=== PATIENT | male | born 1985 | race Two or more races ===

== ENCOUNTER 2022-04-10 19:04 | Inpatient (IN) | payer OTHER ==
[~2022-04-10] VITALS: Ht 172.7 cm; Wt 81.0 kg
[2022-04-10 19:39] LABS: Eosinophils # (auto) 0 10 ^3/uL (0-0.8); Eosinophils % (auto) 0.1 % (0.0-7.0); Hematocrit 35.6 % (41.0-53.0); Mean Corpuscular Volume 81.6 fL (80.0-100.0); Neutrophils % (auto) 85.3 % (37.0-80.0); Red Blood Cells 4.36 10^6/uL (4.5-5.90)
[2022-04-10 19:41] LABS: Basophils # (auto) 0 10 ^3/uL (0-0.2); Basophils % (auto) 0.2 % (0.0-2.0); Hemoglobin 11.5 g/dL (13.5-17.5); Lymphocytes # (auto) 1.5 10 ^3/uL (0.4-5.4); Lymphocytes % (auto) 10.7 % (10.0-50.0); Mean Corpuscular Hemoglobin 26.3 pg (28.0-32.0); Mean Corpuscular Hgb Conc. 32.3 g/dL (32.0-36.0); Monocytes # (auto) 0.5 10 ^3/uL (0-1.3); Monocytes % (auto) 3.7 % (0.0-12.0); Neutrophils # (auto) 11.6 10 ^3/uL (1.6-8.6); Nucleated Red Blood Cells % 0.1 %; Red Cell Distribution Width 19.2 % (11.8-14.3); White Blood Cell 13.6 10^3/uL (4.4-10.8)
[2022-04-10 19:56] LABS: INR 1.05 (0.9-1.15); Partial Thromboplastin Time 25.1 sec (23.6-33.0)
[2022-04-10 19:58] LABS: BUN/Creatinine Ratio 11.7; Calcium 8.7 mg/dL (8.5-10.1); Magnesium 2.1 mg/dL (1.6-2.6); Potassium 3.2 mmol/L (3.5-5.1)
[2022-04-10 20:01] LABS: Bilirubin, Total 0.5 mg/dL (0.2-1.0); Lactic Acid w/Reflex 2.2 mmol/L (0.4-2.0); Total Protein 7.3 g/dL (6.4-8.2)
[2022-04-10] MEDS ORDERED: LABETALOL HCL 5 MG/ML 4ML SYRINGE IV ONE (20:15)
[2022-04-10] MEDS ORDERED: cefTRIAXone 1GM/50ML D5W 50 ML IV ONE (20:15)
[2022-04-10] MEDS ORDERED: AZITHROMYCIN 500MG/ 250ML 250 ML IV ONE (20:15)
[2022-04-10] MEDS ORDERED: methylPREDNISolone SOD SUCC 125 MG/2 ML VL IV ONE (20:15)
[2022-04-10] MEDS ORDERED: ENOXAPARIN SOD 80 MG/0.8ML SYRINGE SC ONE (20:30)
[2022-04-10] MEDS ORDERED: LABETALOL INJECTION 250 MG in SODIUM CHL 0.9% 200 ML IV ONE (21:30)
[2022-04-10] MEDS ORDERED: LABETALOL HCL 5 MG/ML ML 20ML VIAL IV ONE (21:33)
[2022-04-10] MEDS ORDERED: ACETAMINOPHEN 325 MG TAB PO PRN (23:00)
[2022-04-10] MEDS ORDERED: LORazepam 0.5 MG TAB PO PRN (23:00)
[2022-04-10] MEDS ORDERED: ZOLPIDEM TARTRATE 5 MG TAB PO PRN (23:00)
[2022-04-10] MEDS ORDERED: LABETALOL HCL 5 MG/ML 4ML SYRINGE IV PRN (23:00)
[2022-04-10] MEDS ORDERED: MORPHINE SULFATE INJ 2 MG/ml SYRG IV PRN (23:00)
[2022-04-10] MEDS ORDERED: NITROGLYCERIN 0.4 MG SL TAB SL PRN (23:00)
[2022-04-10] MEDS ORDERED: ONDANSETRON HCL 4 MG/2 ML VIAL IV PRN (23:00)
[2022-04-10] MEDS ORDERED: hydrALAZINE HCL 20 MG/ML VL IV PRN (23:00)
[2022-04-10] MEDS ORDERED: ALBUTEROL SULF 2.5 MG/0.5ML(0.5%) NEB SOLN NEB PRN (23:15)
[2022-04-10 23:18] VITALS: BP 194/143
[2022-04-11 02:05] LABS: Urine Bacteria NONE SEEN /hpf (None Seen); Urine Blood Negative /uL (Negative); Urine WBC 2 /hpf (0 - 3)
[2022-04-11 04:27] LABS: Basophils # (auto) 0 10 ^3/uL (0-0.2); Eosinophils # (auto) 0 10 ^3/uL (0-0.8); Monocytes # (auto) 0.2 10 ^3/uL (0-1.3); White Blood Cell 9.8 10^3/uL (4.4-10.8)
[2022-04-11 04:30] LABS: Basophils % (auto) 0.1 % (0.0-2.0); Hemoglobin 9.9 g/dL (13.5-17.5); Lymphocytes # (auto) 0.7 10 ^3/uL (0.4-5.4); Lymphocytes % (auto) 6.7 % (10.0-50.0); Mean Corpuscular Hemoglobin 27.1 pg (28.0-32.0); Monocytes % (auto) 1.7 % (0.0-12.0); Neutrophils % (auto) 91.5 % (37.0-80.0); Red Blood Cells 3.67 10^6/uL (4.5-5.90); Red Cell Distribution Width 19.1 % (11.8-14.3)
[2022-04-11 04:51] LABS: BUN/Creatinine Ratio 13.5; Calcium 8.3 mg/dL (8.5-10.1); Magnesium 2.1 mg/dL (1.6-2.6); Potassium 3.5 mmol/L (3.5-5.1)
[2022-04-11] MEDS: DOCUSATE SOD 100 MG CAP PO SCH (10:47)
[2022-04-11] MEDS: ASPirin 81 mg TAB PO SCH (10:47)
[2022-04-11] MEDS: CLOPIDOGREL BISULFATE 75 MG TAB PO SCH (10:48)
[2022-04-11] MEDS: METOPROLOL TARTRATE 50 MG TAB PO SCH ×2 (10:48→22:05)
[2022-04-11] MEDS: LISINOPRIL 20 MG TAB PO SCH (10:49)
[2022-04-11] MEDS: ENOXAPARIN SOD 80 MG/0.8ML SYRINGE SC SCH ×2 (10:49→22:05)
[2022-04-11] MEDS: cefTRIAXone 1GM/50ML D5W 50 ML IV SCH (11:02)
[2022-04-11] MEDS: AZITHROMYCIN 500MG/ 250ML 250 ML IV SCH (12:21)
[2022-04-11 17:00] VITALS: BP 125/88
[2022-04-11 22:00] VITALS: BP 133/96
[2022-04-11] MEDS: ATORVASTATIN 20 MG TAB PO SCH (22:04)
[2022-04-12 05:00] VITALS: BP 147/103
[2022-04-12 08:00] VITALS: BP 146/112
[2022-04-12 08:16] VITALS: BP 146/112
[2022-04-12] MEDS: AZITHROMYCIN 500MG/ 250ML 250 ML IV SCH (10:25)
[2022-04-12] MEDS: METOPROLOL TARTRATE 50 MG TAB PO SCH ×2 (10:31→22:11)
[2022-04-12] MEDS: ASPirin 81 mg TAB PO SCH (10:32)
[2022-04-12] MEDS: LISINOPRIL 20 MG TAB PO SCH (10:32)
[2022-04-12] MEDS: CLOPIDOGREL BISULFATE 75 MG TAB PO SCH (10:32)
[2022-04-12] MEDS: DOCUSATE SOD 100 MG CAP PO SCH (10:33)
[2022-04-12] MEDS: ENOXAPARIN SOD 80 MG/0.8ML SYRINGE SC SCH (10:34)
[2022-04-12 11:48] LABS: Basophils # (auto) 0 10 ^3/uL (0-0.2); Basophils % (auto) 0.2 % (0.0-2.0); Eosinophils # (auto) 0 10 ^3/uL (0-0.8); Eosinophils % (auto) 0.4 % (0.0-7.0); Hematocrit 31.6 % (41.0-53.0); Hemoglobin 10.1 g/dL (13.5-17.5); Lymphocytes # (auto) 2.7 10 ^3/uL (0.4-5.4); Lymphocytes % (auto) 25.3 % (10.0-50.0); Mean Corpuscular Hemoglobin 26.4 pg (28.0-32.0); Mean Corpuscular Volume 82.6 fL (80.0-100.0); Monocytes # (auto) 0.7 10 ^3/uL (0-1.3); Monocytes % (auto) 6.5 % (0.0-12.0); Neutrophils # (auto) 7.2 10 ^3/uL (1.6-8.6); Neutrophils % (auto) 67.6 % (37.0-80.0); Red Blood Cells 3.82 10^6/uL (4.5-5.90); Red Cell Distribution Width 19.6 % (11.8-14.3); White Blood Cell 10.7 10^3/uL (4.4-10.8)
[2022-04-12 12:39] LABS: Albumin 2.5 g/dL (3.4-5.0); Calcium 8.5 mg/dL (8.5-10.1); Magnesium 2.5 mg/dL (1.6-2.6); Potassium 3.3 mmol/L (3.5-5.1)
[2022-04-12 12:43] LABS: BUN/Creatinine Ratio 16.6; Bilirubin, Total 0.4 mg/dL (0.2-1.0); Total Protein 6.2 g/dL (6.4-8.2)
[2022-04-12 13:15] VITALS: BP 149/116
[2022-04-12 14:35] LABS: Hepatitis C Antibody Negative (Negative)
[2022-04-12] MEDS: cefTRIAXone 1GM/50ML D5W 50 ML IV SCH (15:11)
[2022-04-12] MEDS: NIFEdipine ER 30 MG TAB PO SCH (15:12)
[2022-04-12] MEDS ORDERED: hydrALAZINE HCL 25 MG TAB PO ONE (16:26)
[2022-04-12 17:00] VITALS: BP 144/109
[2022-04-12 17:09] LABS: % Iron Saturation 30.7 % (20-55)
[2022-04-12] MEDS ORDERED: POTASSIUM CHL 20 Meq TABLET PO ONE (18:00)
[2022-04-12 22:00] VITALS: BP 133/93
[2022-04-12] MEDS: hydrALAZINE HCL 25 MG TAB PO SCH (22:10)
[2022-04-12] MEDS: ATORVASTATIN 20 MG TAB PO SCH (22:11)
[2022-04-12 23:05] LABS: Creatinine, Urine 70.2 mg/dL (30.0-125.0); Protein, Urine 84.1 mg/dL (0.0-11.9)
[2022-04-12 23:06] LABS: Alcohol, Urine < 3.0 mg/dL (0-10); Opiate Scree,Urine NEGATIVE (NEGATIVE)
[2022-04-12 23:07] LABS: Amphetamine Screen, Urine NEGATIVE (NEGATIVE); Barbiturate Scree,Urine NEGATIVE (NEGATIVE); Benzodiazephine Screen, Urine NEGATIVE (NEGATIVE); Cannabinoid Screen, Urine NEGATIVE (NEGATIVE); Cocaine Screen, Urine NEGATIVE (NEGATIVE); Phencyclidine Screen, Urine NEGATIVE (NEGATIVE)
[2022-04-13 04:09] LABS: Hematocrit 31.8 % (41.0-53.0); Hemoglobin 10.9 g/dL (13.5-17.5)
[2022-04-13 04:27] LABS: BUN/Creatinine Ratio 17.4; Calcium 8.6 mg/dL (8.5-10.1); Magnesium 2.1 mg/dL (1.6-2.6); Potassium 3.6 mmol/L (3.5-5.1)
[2022-04-13 05:00] VITALS: BP 125/74
[2022-04-13] MEDS: METOPROLOL TARTRATE 50 MG TAB PO SCH ×2 (05:31→22:16)
[2022-04-13] MEDS: hydrALAZINE HCL 25 MG TAB PO SCH ×3 (06:00→22:16)
[2022-04-13] MEDS ORDERED: ADENOSINE 67 MG in GIVE UN-DILUTED 0 ML IV STA (07:51)
[2022-04-13 08:00] VITALS: BP 127/87
[2022-04-13 08:59] VITALS: BP 131/84
[2022-04-13] MEDS: cefTRIAXone 1GM/50ML D5W 50 ML IV SCH (10:32)
[2022-04-13] MEDS: ASPirin 81 mg TAB PO SCH (10:33)
[2022-04-13] MEDS: NIFEdipine ER 30 MG TAB PO SCH (10:33)
[2022-04-13] MEDS: DOCUSATE SOD 100 MG CAP PO SCH (10:33)
[2022-04-13] MEDS: ISOSORBIDE MONONITRATE ER 60 MG TAB PO SCH (10:35)
[2022-04-13] MEDS: ENOXAPARIN SOD 80 MG/0.8ML SYRINGE SC SCH (10:39)
[2022-04-13 12:00] VITALS: BP 124/84
[2022-04-13] MEDS: AZITHROMYCIN 500MG/ 250ML 250 ML IV SCH (12:02)
[2022-04-13 22:00] VITALS: BP 122/74
[2022-04-13] MEDS: ATORVASTATIN 20 MG TAB PO SCH (22:17)
[2022-04-14 05:00] VITALS: BP 145/101
[2022-04-14 05:40] LABS: Hematocrit 31.1 % (41.0-53.0); Hemoglobin 10.4 g/dL (13.5-17.5)
[2022-04-14 05:47] LABS: BUN/Creatinine Ratio 15.9; Calcium 8.4 mg/dL (8.5-10.1)
[2022-04-14] MEDS: hydrALAZINE HCL 25 MG TAB PO SCH ×3 (05:55→21:29)
[2022-04-14] MEDS: ENOXAPARIN SOD 80 MG/0.8ML SYRINGE SC SCH (08:50)
[2022-04-14] MEDS: ASPirin 81 mg TAB PO SCH (08:51)
[2022-04-14] MEDS: NIFEdipine ER 30 MG TAB PO SCH (08:51)
[2022-04-14] MEDS: DOCUSATE SOD 100 MG CAP PO SCH (08:51)
[2022-04-14] MEDS: cefTRIAXone 1GM/50ML D5W 50 ML IV SCH (08:52)
[2022-04-14] MEDS: METOPROLOL TARTRATE 50 MG TAB PO SCH ×2 (08:52→21:30)
[2022-04-14] MEDS: AZITHROMYCIN 500MG/ 250ML 250 ML IV SCH (08:52)
[2022-04-14] MEDS: ISOSORBIDE MONONITRATE ER 60 MG TAB PO SCH (08:52)
[2022-04-14 09:27] VITALS: BP 147/96
[2022-04-14 13:00] VITALS: BP 141/94
[2022-04-14 16:58] VITALS: BP 117/80
[2022-04-14] MEDS: ATORVASTATIN 20 MG TAB PO SCH (21:29)
[2022-04-14 22:00] VITALS: BP 144/99
[2022-04-15 05:00] VITALS: BP 145/97
[2022-04-15 05:44] LABS: Calcium 8.5 mg/dL (8.5-10.1); Potassium 4.4 mmol/L (3.5-5.1)
[2022-04-15 05:46] LABS: BUN/Creatinine Ratio 14.2
[2022-04-15] MEDS: hydrALAZINE HCL 25 MG TAB PO SCH (06:35)
[2022-04-15] MEDS: AZITHROMYCIN 500MG/ 250ML 250 ML IV SCH (09:17)
[2022-04-15] MEDS: ENOXAPARIN SOD 80 MG/0.8ML SYRINGE SC SCH (09:17)
[2022-04-15] MEDS: cefTRIAXone 1GM/50ML D5W 50 ML IV SCH (09:17)
[2022-04-15] MEDS ORDERED: ASPI-498 PO (09:19)
[2022-04-15] MEDS ORDERED: ISOS1TAB28 PO (09:19)
[2022-04-15] MEDS: METOPROLOL TARTRATE 50 MG TAB PO SCH (09:19)
[2022-04-15] MEDS ORDERED: METO25TA5 PO (09:19)
[2022-04-15] MEDS: ASPirin 81 mg TAB PO SCH (09:19)
[2022-04-15] MEDS: NIFEdipine ER 30 MG TAB PO SCH (09:19)
[2022-04-15] MEDS ORDERED: AZIT500T66 PO (09:19)
[2022-04-15] MEDS ORDERED: ATO40T PO (09:19)
[2022-04-15] MEDS ORDERED: NIFE90TA49 PO (09:19)
[2022-04-15] MEDS: ISOSORBIDE MONONITRATE ER 60 MG TAB PO SCH (09:20)
[2022-04-15] MEDS: DOCUSATE SOD 100 MG CAP PO SCH (09:20)
[2022-04-15 09:23] VITALS: BP 158/99
[2022-04-15 10:36] VITALS: BP 158/99
== END 2022-04-15 12:37 | disposition home or self-care (01) | DRG 720 ==
LOC: ER 19:04 → TELE 22:49 → TELE-CENTR 04-11 15:29
PROVIDERS: ADMIT Hospitalist; ATTEND Family Medicine
DX: A41.9 Sepsis, unspecified organism (principal); N17.0 Acute kidney failure with tubular necrosis; J96.00 Acute respiratory failure, unspecified whether with hypoxia or hypercapnia; I21.4 Non-ST elevation (NSTEMI) myocardial infarction; I50.33 Acute on chronic diastolic (congestive) heart failure; J18.9 Pneumonia, unspecified organism; D63.1 Anemia in chronic kidney disease; I13.0 Hypertensive heart and chronic kidney disease with heart failure and stage 1 through stage 4 chronic kidney disease, or unspecified chronic kidney disease; E87.6 Hypokalemia; R94.31 Abnormal electrocardiogram [ECG] [EKG]; I16.1 Hypertensive emergency; Z20.822 Contact with and (suspected) exposure to COVID-19; I25.10 Atherosclerotic heart disease of native coronary artery without angina pectoris; E78.5 Hyperlipidemia, unspecified; E55.9 Vitamin D deficiency, unspecified; N18.4 Chronic kidney disease, stage 4 (severe); E78.00 Pure hypercholesterolemia, unspecified; Z91.19 Patient's noncompliance with other medical treatment and regimen
CPT/HCPCS: 36415; 71045; 76775; 78452; 80048; 80053; 80061; 80307; 81001; 82306; 82570; 83540; 83550; 83605; 83735; 83880; 83970; 84100; 84156; 84300; 84443; 84484; 85014; 85018; 85025; 85379; 85610; 85730; 86803; 87040; 87340; 93005; 93017; 93306; 93970; 96365; 96372; 96375; 99291; G0378; J0153; J0696; J3490

== ENCOUNTER 2023-04-14 19:51 | Inpatient (IN) | payer OTHER ==
[~2023-04-14] VITALS: Ht 172.7 cm; Wt 83.0 kg
[~2023-04-14 19:51] MED LIST: ASPI-498 PO; ATO40T PO; AZIT500T66 PO; ISOS1TAB28 PO; METO25TA5 PO; NIFE90TA75 PO
[2023-04-14] MEDS ORDERED: cloNIDine HCL 0.1 MG TAB PO ONE (20:15)
[2023-04-14 20:29] LABS: Basophils # (auto) 0.1 10 ^3/uL (0-0.2); Basophils % (auto) 0.9 % (0.0-2.0); Eosinophils # (auto) 0.2 10 ^3/uL (0-0.8); Hematocrit 45.1 % (41.0-53.0); Lymphocytes # (auto) 3.1 10 ^3/uL (0.4-5.4); Lymphocytes % (auto) 38.7 % (10.0-50.0); Mean Corpuscular Hemoglobin 27.3 pg (28.0-32.0); Mean Corpuscular Hgb Conc. 33.4 g/dL (32.0-36.0); Mean Corpuscular Volume 81.9 fL (80.0-100.0); Monocytes # (auto) 0.4 10 ^3/uL (0-1.3); Monocytes % (auto) 5.3 % (0.0-12.0); Neutrophils # (auto) 4.3 10 ^3/uL (1.6-8.6); Neutrophils % (auto) 53.1 % (37.0-80.0); Red Cell Distribution Width 14.4 % (11.8-14.3); White Blood Cell 8.1 10^3/uL (4.4-10.8)
[2023-04-14 20:48] LABS: Anion Gap 8 (5-15); BUN/Creatinine Ratio 8.7 (10.0-20.0); Blood Urea Nitrogen 22 mg/dL (7-18); Calcium 9.3 mg/dL (8.5-10.1); Carbon Dioxide 24 mmol/L (21-32); Chloride 105 mmol/L (98-107); GFR African American 37 mL/min; GFR Non-African American 30 mL/min; Glucose 104 mg/dL (74-106); Sodium 137 mmol/L (136-145)
[2023-04-14 20:51] LABS: Alanine Aminotransferase 30 U/L (16-61); Alkaline Phosphatase 103 U/L (45-117); Aspartate Aminotransferase 17 U/L (15-37); Bilirubin, Total 0.4 mg/dL (0.2-1.0); Total Protein 8.6 g/dL (6.4-8.2)
[2023-04-14 22:00] LABS: Potassium 2.9 mmol/L (3.5-5.1)
[2023-04-15] MEDS ORDERED: hydrALAZINE HCL 20 MG/ML VL IV ONE (01:45)
[2023-04-15] MEDS ORDERED: POTASSIUM CHLORIDE 40 MEQ in D5W 5% 1,000 ML IV SCH (04:00)
[2023-04-15] MEDS ORDERED: LABETALOL HCL 5 MG/ML 4ML SYRINGE IV ONE ×2 (04:00→16:30)
[2023-04-15] MEDS ORDERED: POTASSIUM EFFERVESENT TAB 25 MEQ PO ONE (04:45)
[2023-04-15] MEDS ORDERED: D5W 5% 1,000 ML IV ONE (06:00)
[2023-04-15] MEDS ORDERED: POTASSIUM CHL 20MEQ/100ML 100 ML IV ONE (06:00)
[2023-04-15] MEDS ORDERED: MORPHINE SULFATE INJ 2 MG/ml SYRG IV PRN (10:15)
[2023-04-15] MEDS ORDERED: SODIUM CHLORIDE 0.9% 1,000 ML IV SCH (10:15)
[2023-04-15] MEDS ORDERED: DOCUSATE SOD 100 MG CAP PO PRN (10:15)
[2023-04-15] MEDS ORDERED: ONDANSETRON HCL 4 MG/2 ML VIAL IV PRN (10:15)
[2023-04-15 10:48] LABS: Creatinine, Urine 194 mg/dL (30.0-125.0); Sodium Urine 59 mmol/L (40-220)
[2023-04-15] MEDS: METOPROLOL TARTRATE 50 MG TAB PO SCH ×2 (11:20→22:22)
[2023-04-15] MEDS: hydrALAZINE HCL 20 MG/ML VL IV PRN (13:25)
[2023-04-15] MEDS ORDERED: NIFEdipine ER 30 MG TAB PO ONE (14:45)
[2023-04-15] MEDS ORDERED: POTASSIUM CHL 20 Meq TABLET PO ONE (16:30)
[2023-04-15] MEDS: SODIUM CHLORIDE 0.9% 1,000 ML IV SCH (16:45)
[2023-04-15] MEDS: ATORVASTATIN 20 MG TAB PO SCH (22:21)
[2023-04-16] MEDS: SODIUM CHLORIDE 0.9% 1,000 ML IV SCH ×2 (00:14→09:25)
[2023-04-16 06:35] LABS: Basophils # (auto) 0.1 10 ^3/uL (0-0.2); Basophils % (auto) 1.1 % (0.0-2.0); Eosinophils # (auto) 0.2 10 ^3/uL (0-0.8); Hematocrit 43.4 % (41.0-53.0); Hemoglobin 14.8 g/dL (13.5-17.5); Lymphocytes # (auto) 2.6 10 ^3/uL (0.4-5.4); Lymphocytes % (auto) 31.6 % (10.0-50.0); Mean Corpuscular Hemoglobin 27.6 pg (28.0-32.0); Mean Corpuscular Hgb Conc. 34.1 g/dL (32.0-36.0); Mean Corpuscular Volume 81.1 fL (80.0-100.0); Monocytes # (auto) 0.6 10 ^3/uL (0-1.3); Monocytes % (auto) 6.8 % (0.0-12.0); Neutrophils # (auto) 4.7 10 ^3/uL (1.6-8.6); Neutrophils % (auto) 57.5 % (37.0-80.0); Nucleated Red Blood Cells % 0.1 %; Red Blood Cells 5.35 10^6/uL (4.5-5.90); Red Cell Distribution Width 14.3 % (11.8-14.3); White Blood Cell 8.2 10^3/uL (4.4-10.8)
[2023-04-16 06:40] LABS: Albumin 3.4 g/dL (3.4-5.0); Potassium 3.3 mmol/L (3.5-5.1)
[2023-04-16 06:46] LABS: Bilirubin, Total 0.7 mg/dL (0.2-1.0); Total Protein 7.4 g/dL (6.4-8.2)
[2023-04-16 08:01] LABS: INR 1.06 (0.9-1.15); Partial Thromboplastin Time 30.3 SEC (24.5-34.5)
[2023-04-16 08:19] LABS: Urine Bacteria NONE SEEN /hpf (None Seen); Urine Blood Negative /uL (Negative); Urine Specific Gravity 1.008 (1.001-1.035); Urine WBC <1 /hpf (0 - 3)
[2023-04-16 08:43] LABS: Alcohol, Urine < 3.0 mg/dL (0-10); Amphetamine Screen, Urine NEGATIVE (NEGATIVE); Barbiturate Scree,Urine NEGATIVE (NEGATIVE); Cannabinoid Screen, Urine POSITIVE (NEGATIVE); Cocaine Screen, Urine NEGATIVE (NEGATIVE)
[2023-04-16 08:51] LABS: Benzodiazephine Screen, Urine NEGATIVE (NEGATIVE); Opiate Scree,Urine NEGATIVE (NEGATIVE); Phencyclidine Screen, Urine NEGATIVE (NEGATIVE)
[2023-04-16] MEDS ORDERED: NIFEdipine ER 30 MG TAB PO SCH (10:00)
[2023-04-16] MEDS: ASPirin-EC 81 mg tab PO SCH (10:06)
[2023-04-16] MEDS: ISOSORBIDE MONONITRATE ER 60 MG TAB PO SCH (10:06)
[2023-04-16] MEDS: METOPROLOL TARTRATE 50 MG TAB PO SCH ×2 (10:07→21:54)
[2023-04-16] MEDS ORDERED: POTASSIUM CHL 20 Meq TABLET PO ONE (13:30)
[2023-04-16] MEDS ORDERED: HCTZ 25 MG TAB PO ONE (13:45)
[2023-04-16] MEDS ORDERED: NIFEdipine ER 30 MG TAB PO ONE (13:45)
[2023-04-16 14:08] LABS: Magnesium 2.3 mg/dL (1.6-2.6)
[2023-04-16 16:20] LABS: Protein, Urine 513.6 mg/dL (0.0-11.9)
[2023-04-16] MEDS ORDERED: cefTRIAXone 1GM/50ML D5W 50 ML IV ONE (19:30)
[2023-04-16] MEDS: ATORVASTATIN 20 MG TAB PO SCH (21:53)
[2023-04-16] MEDS: hydrALAZINE HCL 25 MG TAB PO SCH (23:33)
[2023-04-17 06:16] LABS: Basophils # (auto) 0.1 10 ^3/uL (0-0.2); Basophils % (auto) 0.9 % (0.0-2.0); Eosinophils # (auto) 0.2 10 ^3/uL (0-0.8); Eosinophils % (auto) 2.9 % (0.0-7.0); Hematocrit 41.4 % (41.0-53.0); Lymphocytes # (auto) 2.8 10 ^3/uL (0.4-5.4); Lymphocytes % (auto) 36.3 % (10.0-50.0); Mean Corpuscular Hemoglobin 27.7 pg (28.0-32.0); Mean Corpuscular Hgb Conc. 33.9 g/dL (32.0-36.0); Mean Corpuscular Volume 81.9 fL (80.0-100.0); Monocytes # (auto) 0.5 10 ^3/uL (0-1.3); Monocytes % (auto) 6.2 % (0.0-12.0); Neutrophils # (auto) 4.1 10 ^3/uL (1.6-8.6); Neutrophils % (auto) 53.7 % (37.0-80.0); Red Blood Cells 5.05 10^6/uL (4.5-5.90); Red Cell Distribution Width 14.8 % (11.8-14.3); White Blood Cell 7.7 10^3/uL (4.4-10.8)
[2023-04-17 06:31] LABS: Potassium 3.7 mmol/L (3.5-5.1)
[2023-04-17 06:49] LABS: Albumin 3.4 g/dL (3.4-5.0); BUN/Creatinine Ratio 9.5 (10.0-20.0); Bilirubin, Total 0.6 mg/dL (0.2-1.0); Calcium 8.9 mg/dL (8.5-10.1); Magnesium 2.2 mg/dL (1.6-2.6); Total Protein 6.6 g/dL (6.4-8.2)
[2023-04-17] MEDS: ASPirin-EC 81 mg tab PO SCH (09:40)
[2023-04-17] MEDS: METOPROLOL TARTRATE 50 MG TAB PO SCH ×2 (09:41→21:26)
[2023-04-17] MEDS: ISOSORBIDE MONONITRATE ER 60 MG TAB PO SCH (09:42)
[2023-04-17] MEDS: hydrALAZINE HCL 25 MG TAB PO SCH ×2 (09:42→21:27)
[2023-04-17] MEDS: NIFEdipine ER 30 MG TAB PO SCH (09:43)
[2023-04-17] MEDS ORDERED: HCTZ 25 MG TAB PO SCH (10:00)
[2023-04-17 10:53] VITALS: BP 138/95
[2023-04-17 11:25] VITALS: BP 138/95
[2023-04-17] MEDS ORDERED: HYDR25TA5 PO (11:40)
[2023-04-17 13:00] VITALS: BP 136/89
[2023-04-17 17:00] VITALS: BP 147/106
[2023-04-17] MEDS: ATORVASTATIN 20 MG TAB PO SCH (21:26)
[2023-04-17 22:00] VITALS: BP 159/108
[2023-04-18] VITALS (7 sets, daily range): BP systolic 126–181; BP diastolic 89–121
[2023-04-18] MEDS: hydrALAZINE HCL 20 MG/ML VL IV PRN (05:11)
[2023-04-18 06:40] LABS: Calcium 9.4 mg/dL (8.5-10.1)
[2023-04-18 06:42] LABS: BUN/Creatinine Ratio 11.3 (10.0-20.0)
[2023-04-18] MEDS ORDERED: POTASSIUM CHL 20 Meq TABLET PO ONE (08:45)
[2023-04-18] MEDS: NIFEdipine ER 30 MG TAB PO SCH (09:01)
[2023-04-18] MEDS: METOPROLOL TARTRATE 50 MG TAB PO SCH ×2 (09:01→22:03)
[2023-04-18] MEDS: ISOSORBIDE MONONITRATE ER 60 MG TAB PO SCH (09:02)
[2023-04-18] MEDS: hydrALAZINE HCL 25 MG TAB PO SCH ×3 (09:02→22:03)
[2023-04-18] MEDS: ASPirin-EC 81 mg tab PO SCH (09:02)
[2023-04-18] MEDS: SPIRONOLACTONE 25 MG TAB PO SCH (09:03)
[2023-04-18] MEDS: ATORVASTATIN 20 MG TAB PO SCH (22:02)
[2023-04-19 05:00] VITALS: BP 139/105
[2023-04-19] MEDS: hydrALAZINE HCL 25 MG TAB PO SCH ×2 (06:49→14:00)
[2023-04-19 06:51] LABS: BUN/Creatinine Ratio 12.5 (10.0-20.0); Calcium 9.1 mg/dL (8.5-10.1); Potassium 3.1 mmol/L (3.5-5.1)
[2023-04-19 08:42] VITALS: BP 157/97
[2023-04-19] MEDS ORDERED: POTASSIUM CHL 20 Meq TABLET PO ONE (09:30)
[2023-04-19] MEDS: METOPROLOL TARTRATE 50 MG TAB PO SCH (09:50)
[2023-04-19] MEDS: SPIRONOLACTONE 25 MG TAB PO SCH (09:50)
[2023-04-19] MEDS: ASPirin-EC 81 mg tab PO SCH (09:50)
[2023-04-19] MEDS: ISOSORBIDE MONONITRATE ER 60 MG TAB PO SCH (09:50)
[2023-04-19] MEDS: NIFEdipine ER 30 MG TAB PO SCH (09:51)
[2023-04-19] MEDS ORDERED: ISO60SRT PO (10:53)
[2023-04-19] MEDS ORDERED: HYDR-4297 PO (10:53)
[2023-04-19] MEDS ORDERED: SPIR25TA PO (10:53)
[2023-04-19] MEDS ORDERED: NIFE90TA75 PO (10:53)
[2023-04-19] MEDS ORDERED: METO1TAB9 PO (10:53)
[2023-04-19] MEDS ORDERED: ATO40T PO (11:02)
[2023-04-19 12:47] VITALS: BP 159/96
[2023-04-19 13:11] VITALS: BP 157/97
== END 2023-04-19 14:53 | disposition home or self-care (01) | DRG 199 ==
LOC: ER 19:51 → TELE 04-15 10:07 → TELE-CENTR 04-17 11:51
PROVIDERS: ADMIT Nurse Practitioner Family; ATTEND Internal Medicine Geriatric Medicine
DX: I16.1 Hypertensive emergency (principal); N17.9 Acute kidney failure, unspecified; E44.1 Mild protein-calorie malnutrition; N18.4 Chronic kidney disease, stage 4 (severe); I12.9 Hypertensive chronic kidney disease with stage 1 through stage 4 chronic kidney disease, or unspecified chronic kidney disease; E87.6 Hypokalemia; R51.9 Headache, unspecified; R80.9 Proteinuria, unspecified; F12.90 Cannabis use, unspecified, uncomplicated; E78.5 Hyperlipidemia, unspecified; E66.9 Obesity, unspecified; Z91.199 Patient's noncompliance with other medical treatment and regimen due to unspecified reason; Z68.27 Body mass index [BMI] 27.0-27.9, adult; Z79.899 Other long term (current) drug therapy; Z82.49 Family history of ischemic heart disease and other diseases of the circulatory system
CPT/HCPCS: 36415; 70450; 71046; 80048; 80053; 80061; 80307; 81001; 82088; 82570; 82962; 83036; 83735; 84132; 84156; 84244; 84300; 84443; 84484; 85025; 85610; 85730; 93306; 93975; 96361; 96374; 96375; G0378; J0696; J3480; J3490